=== PATIENT | female | born 1990 | race Caucasian/White ===

== ENCOUNTER 2019-06-17 12:41 | Emergency (ER) | payer MEDICAID ==
[~2019-06-17] VITALS: Ht 165.1 cm; Wt 61.7 kg
[2019-06-17 13:37] VITALS: BP 141/77
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
== END 2019-06-17 16:19 | disposition home or self-care (01) ==
LOC: ER 12:41
DX: S00.12XA Contusion of left eyelid and periocular area, initial encounter (principal); G43.909 Migraine, unspecified, not intractable, without status migrainosus; F17.200 Nicotine dependence, unspecified, uncomplicated; V49.49XA Driver injured in collision with other motor vehicles in traffic accident, initial encounter; Y92.488 Other paved roadways as the place of occurrence of the external cause; Y93.89 Activity, other specified; Y99.8 Other external cause status
CPT/HCPCS: 70450; 70486; 81025; 99284

== ENCOUNTER 2019-08-05 20:08 | Emergency (ER) | payer MEDICAID ==
[~2019-08-05] VITALS: Ht 167.6 cm; Wt 62.0 kg
[2019-08-05 20:20] VITALS: BP 133/80
--- NOTE | 2019-08-05 22:03 | RAD ---
Exam: Tib-fib right 2 views. Right foot 3 views. Right ankle 3 views INDICATION: Fall 2 days ago TECHNIQUE: Frontal, lateral views of the right lower leg. Frontal, lateral and oblique views of the right ankle and foot. Comparisons: None FINDINGS: Right tib-fib 2 views. Bone mineralization is normal. No acute or healed fractures. Soft tissues are unremarkable. Joint spaces are well-maintained. Right ankle: Bone mineralization is normal. No acute or healed fractures. Soft tissues are unremarkable. Joint spaces are well-maintained. Right foot: Bone mineralization is normal. No acute or healed fractures. Soft tissues are unremarkable. Joint spaces are well-maintained. IMPRESSION: 1. No acute osseous abnormality of the right lower leg. 2. No acute osseous abnormality of the right ankle 3. No acute osseous abnormality of the right foot. Electronically signed by: Myesha Goldman MD (08/05/2019 10:00 PM) [facility]
--- NOTE | 2019-08-05 22:17 | PHYS DOC ---
Past Medical History Past Medical History: No Pertinent History Past Surgical History: No Surgical History Alcohol Use: None Drug Use: None Adult General Chief Complaint Chief Complaint: FOOT INJURY PAIN [facility] Patient is a 29 year old female who presents with right leg pain of she fell around 11:30 PM Monday night. The patient states she's been having right lateral foot pain since that time. This pain extends up into her right lower extremity. The patient states that she was getting out of bed to check on her baby when she hurt her foot. Denies any other complaints. Complete ROS were reviewed and found to be within normal limits, except as documented in the [facility] Allergies Allergies Allergies Coded Allergies Type Severity Reaction Last Updated Verified No Known Drug Allergies 08/05/19 No Physical Exam Physical Exam Constitutional: Well developed, well nourished, no acute distress, non-toxic appearance. [] HENT: Normocephalic, atraumatic, bilateral external ears normal, oropharynx moist, no oral exudates, nose normal. [] Eyes: PERRLA, EOMI, conjunctiva normal, no discharge. [] Extremities: Tenderness to R lateral foot, ankle, and leg. No edema. Neurologic: Alert and oriented X 3, normal motor function, normal sensory function, no focal deficits noted. [] Psychologic: Affect normal, judgement normal, mood normal. [] Current Patient Data Vital Signs Vital Signs Date Time Temp Pulse Resp B/P (MAP) Pulse Ox O2 Delivery O2 Flow Rate FiO2 08/05/19 20:20 98.1 69 16 133/80 (97) 100 Room Air 98.1 Lab Values Laboratory Tests Test 08/05/19 20:46 POC Urine HCG, Qualitative Hcg negative (Negative) EKG EKG [] Radiology/Procedures Radiology/Procedures [][facility] [address] [place] [address] IMAGING REPORT Signed PATIENT: VARINDER JJ ACCOUNT: [id number] : 1990 LOCATION: ER AGE: 29 SEX: F EXAM STATUS: REG ER ORD. PHYSICIAN: PETERSON ENAMORADO APRN REASON: fall x2 days ago. right lateral LE pain PROCEDURE: ANKLE RIGHT 3V Exam: Tib-fib right 2 views. Right foot 3 views. Right ankle 3 views INDICATION: Fall 2 days ago TECHNIQUE: Frontal, lateral views of the right lower leg. Frontal, lateral and oblique views of the right ankle and foot. Comparisons: None FINDINGS: Right tib-fib 2 views. Bone mineralization is normal. No acute or healed fractures. Soft tissues are unremarkable. Joint spaces are well-maintained. Right ankle: Bone mineralization is normal. No acute or healed fractures. Soft tissues are unremarkable. Joint spaces are well-maintained. Right foot: Bone mineralization is normal. No acute or healed fractures. Soft tissues are unremarkable. Joint spaces are well-maintained. IMPRESSION: 1. No acute osseous abnormality of the right lower leg. 2. No acute osseous abnormality of the right ankle 3. No acute osseous abnormality of the right foot. Electronically signed by: Myesha Petersen MD (08/05/2019 10:00 PM) [facility] DICTATED and SIGNED BY: MYESHA PETERSEN MD DATE: 08/05/192199 Course & Med Decision Making Course & Med Decision Making Pertinent Labs and Imaging studies reviewed. (See chart for details) Will get imaging. Imaging is negative. Will put in boot. Dragon Disclaimer Dragon Disclaimer This electronic medical record was generated, in whole or in part, using a voice recognition dictation system. Departure Departure Impression: Primary Impression: Foot pain, right Disposition: HOME, SELF-CARE Condition: STABLE Referrals: NO PCP (PCP) Additional Instructions: Thank you for visiting [facility]. We appreciate you trusting us with your care. If any additional problems come up don't hesitate to return to visit us. Please follow up with your primary care provider so they can plan additional care if needed and know about the problem that you had. If symptoms worsen come back to the Emergency Department. Any concerning symptoms that start such as chest pain, shortness of air, weakness or numbness on one side of the body, running high fevers or any other concerning symptoms return to the ER. PETERSON ENAMORADO APRN Aug 05, 2019 22:17
== END 2019-08-05 22:29 | disposition home or self-care (01) ==
LOC: ER 20:08
DX: M79.671 Pain in right foot (principal); M79.604 Pain in right leg; M25.571 Pain in right ankle and joints of right foot; G89.11 Acute pain due to trauma; W18.39XA Other fall on same level, initial encounter; Y93.89 Activity, other specified; Y92.89 Other specified places as the place of occurrence of the external cause; Y99.8 Other external cause status
CPT/HCPCS: 73590; 73610; 73630; 81025; 99284

== ENCOUNTER 2021-10-19 16:25 | Emergency (ER) | payer MEDICAID ==
[~2021-10-19] VITALS: Ht 167.6 cm; Wt 56.8 kg
[2021-10-19 16:45] VITALS: BP 120/83
[2021-10-19] MEDS ORDERED: KETOROLAC 30 MG/ML VIAL. IM ONE (17:00)
--- NOTE | 2021-10-19 17:33 | PHYS DOC ---
Past Medical History Past Medical History: No Pertinent History Past Surgical History: No Surgical History Smoking Status: Never Smoker Alcohol Use: None Drug Use: None General Adult EDM: Chief Complaint: UPPER EXTREMITY INJURY HPI: HPI: Patient is a 31 year old female who presents with left wrist pain. 2 days ago, patient was doing dishes and cleaning a sippy cup in her kitchen sink. When the rubber straw she was pulling out of the cup released, she hit the medial aspect of her wrist on the edge of the kitchen sink. Patient reports that her in the other room could hear the "crunch" upon impact. She states she deferred presenting to the emergency department, she did not realize how much it was bothering her. She reports associated paresthesias to her left pinky finger. Patient has no other complaints at this time. Review of Systems: Review of Systems: ROS negative or noncontributory except as mentioned in HPI. Heart Score: C/O Chest Pain: No Current Medications: Current Medications Medications (Trade) Dose Ordered Sig/Es Start Time Stop Time Status Last Admin Dose Admin Ketorolac Tromethamine (Toradol 30mg Vial) 30 mg 1X ONCE 10/19/21 17:00 10/19/21 17:01 DC Allergies: Allergies: Allergies Coded Allergies Type Severity Reaction Last Updated Verified No Known Drug Allergies 10/19/21 No Physical Exam: PE: Constitutional: Well developed, well nourished, no acute distress, non-toxic appearance. HENT: Normocephalic, atraumatic, bilateral external ears normal, nose normal. Eyes: EOMI, conjunctiva normal, no discharge. Neck: Normal range of motion, no stridor. Skin: Warm, dry, no erythema, no rash, no abrasions, no lacerations, no ecchymosis. Extremities: Left wrist exquisitely tender to palpation over the medial aspect, range of motion limited secondary to pain, no cyanosis, no clubbing, no edema, cap refill less than 2 seconds in bilateral hands, radial pulses 2+ and symmetrical. Neurologic: Alert and oriented x4, normal motor function, normal sensory function, no focal deficits noted. Current Patient Data: Vital Signs: Vital Signs Date Time Temp Pulse Resp B/P (MAP) Pulse Ox O2 Delivery O2 Flow Rate FiO2 10/19/21 16:45 98.2 92 16 120/83 (95) Room Air 98.2 Radiology/Procedures: Radiology/Procedures: PROCEDURE: WRIST 3V LEFT Study: XR LT WRIST 3VIEWS Indication: Recent injury. Pain. Comparison: None. Findings: No acute or subacute fracture. Alignment is anatomic. Maintained joint spaces. No retained radiodense foreign body. Impression: No acute osseous abnormality or significant arthrosis. Electronically signed by: MARIEL BOBO MD (10/19/2021 5:50 PM) [facility] Course & Med Decision Making: Course & Med Decision Making Pertinent Labs and Imaging studies reviewed. (See chart for details) Patient is a 31-year-old female who presents with left wrist pain after a contusion sustained 2 days ago. Plain films were obtained. No acute fracture dislocation seen on plain films today. Patient was placed in a Velcro wrist splint and instructed to follow-up with primary care/orthopedics should symptoms persist. Return precautions were provided. Patient understands and is agreeable to discharge plan Dragon Disclaimer: Dragon Disclaimer: This electronic medical record was generated, in whole or in part, using a voice recognition dictation system. Departure Departure Impression: Primary Impression: Contusion of left wrist, initial encounter Disposition: HOME / SELF CARE / HOMELESS Condition: IMPROVED Referrals: NO PCP (PCP) HUGO DIAMOND II, MD Patient Instructions: Wrist Splint, [id number] Additional Instructions: EMERGENCY DEPARTMENT GENERAL DISCHARGE INSTRUCTIONS Thank you for coming to [facility] Emergency Department (ED) today and trusting us with you care. We trust that you had a positive experience in our Emergency Department. If you wish to speak to the department management, you may call the director at . YOUR FOLLOW UP INSTRUCTIONS ARE FOLLOWS: 1. Follow up with your primary care doctor. If you do not have a primary doctor, please ask for a resource list of physicians or clinics that may be able to assist you with follow up care. 2. The emergency provider has interpreted your imaging studies, if any were ordered. The radiology imaging administrator also reviewed them. If there is a change in the findings, you will be notified in 48 hours when at all possible. 3. If a lab test or culture has been done, your results will be reviewed and you will be notified if you need a change in treatment. 4. Follow instructions verbalized to you and refer to the printouts if needed. ADDITIONAL INSTRUCTIONS AND INFORMATION: 1. Your care today has been supervised by a physician who is specially trained in emergency care. Many problems require more than one evaluation for a complete diagnosis and treatment. We recommend that you schedule your follow up appointment as recommended to ensure complete treatment of you illness or injury. If you are unable to obtain follow up care and continue to have a problem, or if your condition worsens, we recommend that you return to the ED. 2. We are not able to safely determine your condition over the phone nor are we able to give sound medical advice over the phone. For these safety reasons, if you call for medical advice we will ask you to come to the ED for further evaluation. 3. If you have any questions regarding these discharge instructions please call the ED at . SAFETY INFORMATION: In the interest of safety, wellness, and injury prevention; we encourage you to wear your seat belt, if you smoke; quite smoking, and we encourage family to use a protective helmet for bicycling and other sporting events that present an increased risk for head injury. IF YOUR SYMPTOMS WORSEN OR NEW SYMPTOMS DEVELOP, OR YOU HAVE CONCERNS ABOUT YOUR CONDITION; OR IF YOUR CONDITION WORSENS WHILE YOU ARE WAITING FOR YOUR FOLLOW UP APPOINTMENT; EITHER CONTACT YOUR PRIMARY CARE DOCTOR, THE PHYSICIAN WHOSE NAME AND NUMBER YOU WERE GIVEN, OR RETURN TO THE ED IMMEDIATELY. ARCHANA MORGAN Oct 19, 2021 17:33
--- NOTE | 2021-10-19 17:53 | RAD ---
Study: XR LT WRIST 3VIEWS Indication: Recent injury. Pain. Comparison: None. Findings: No acute or subacute fracture. Alignment is anatomic. Maintained joint spaces. No retained radiodense foreign body. Impression: No acute osseous abnormality or significant arthrosis. Electronically signed by: MARIEL BOBO MD (10/19/2021 5:50 PM) [facility]
== END 2021-10-19 18:19 | disposition home or self-care (01) ==
LOC: ER 16:25
DX: S60.212A Contusion of left wrist, initial encounter (principal); R20.2 Paresthesia of skin; Y28.8XXA Contact with other sharp object, undetermined intent, initial encounter; Y93.G1 Activity, food preparation and clean up; Y92.090 Kitchen in other non-institutional residence as the place of occurrence of the external cause; Y99.8 Other external cause status
CPT/HCPCS: 29125; 73120; 96372; 99283; J1885